=== PATIENT | male | born 1960 | race Caucasian/White ===

== ENCOUNTER 2018-07-01 16:08 | Emergency (ER) | payer OTHER ==
[~2018-07-01] VITALS: Ht 177.8 cm; Wt 84.2 kg
[2018-07-01 16:22] VITALS: BP 161/68
[2018-07-01] MEDS ORDERED: LIDOCAINE 1%, 10ML INFIL ONE (16:30)
[2018-07-01] MEDS ORDERED: DIPH,PERTUSS(ACELL),TET VAC/PF 0.5 ML IM-VACC ONE ×2 (16:30→17:40)
[2018-07-01] MEDS ORDERED: LIDOCAINE 1%-EPI 1:100K, 20ML INFIL ONE (17:30)
[2018-07-01] MEDS ORDERED: LIDOCAINE 1%-EPI 1:100K, 20ML ONE (17:33)
[2018-07-01] MEDS ORDERED: BACITRACIN ZINC OINT 500U/GM, 0.9 GM ONE (18:54)
== END 2018-07-01 18:59 | disposition home or self-care (01) ==
LOC: ED 17:21
DX: S61.012A Laceration without foreign body of left thumb without damage to nail, initial encounter (principal); X58.XXXA Exposure to other specified factors, initial encounter; Y93.89 Activity, other specified; Y92.009 Unspecified place in unspecified non-institutional (private) residence as the place of occurrence of the external cause; Y99.8 Other external cause status
CPT/HCPCS: 12042; 90471; 90715